=== PATIENT | female | born 1940 | race Caucasian/White ===

== ENCOUNTER 2017-01-29 17:48 | Inpatient (IN) | payer MEDICARE, BC ==
--- NOTE | ~2017-01-29 | EGD ---
EGD REPORT [facility] [address] [address] NAME: PEGGY CALDERON : [birth year] STATUS : ADM IN PAT#: [id number] AGE: 76 ADM/REG DATE : 01/29/17 MR#: [id number] REPORT SERV DATE: 01/31/17 DICTATED BY: AURELIO PADILLA DATE: 01/31/17 REPORT STATUS : Draft TRANSCRIBED BY: [employer] DATE: 01/31/17 [facility] Patient Name: Peggy Calderon Date of : 1940 Attending MD: AURELIO PADILLA, Procedure Date No Time: 01/31/2017 Procedure: Upper GI endoscopy Indications: Hematochezia Referring MD: BABATUNDE RICHARDS MD Medicines: Monitored Anesthesia Care Complications: No immediate complications. Estimated blood loss: None. Procedure: Pre-Anesthesia Assessment: - ASA Grade Assessment: III - A patient with severe systemic disease. After obtaining informed consent, the endoscope was passed under direct vision. Throughout the procedure, the patient's blood pressure, pulse, and oxygen saturations were monitored continuously. The GIF H190 [id number] was introduced through the mouth, and advanced to the second part of duodenum. The upper GI endoscopy was accomplished without difficulty. The patient tolerated the procedure well. Findings: The esophagus was normal. A single medium-sized papule (nodule) with no bleeding and no stigmata of recent bleeding was found on the anterior wall of the gastric body. Biopsies were taken with a cold forceps for histology. Verification of patient identification for the specimen was done. Estimated blood loss was minimal. One small papule (nodule) with no bleeding and no stigmata of recent bleeding was found on the posterior wall of the gastric body. A single 11 mm sessile polyp with no bleeding and no stigmata of recent bleeding was found in the gastric antrum. Biopsies were taken with a cold forceps for histology. Verification of patient identification for the specimen was done. Estimated blood loss was minimal. The cardia and gastric fundus were normal on retroflexion. The examined duodenum was normal. Impression: - Normal esophagus. - A single medium-sized papule (nodule) with no bleeding and no stigmata of recent bleeding was found in the stomach. Biopsied. - One small papule (nodule) with no bleeding and no stigmata of recent bleeding was found in the stomach. EGD REPORT [place] [id number] [facility] [place]. [address] NAME: PEGGY CALDERON : [birth year] STATUS : ADM IN [facility]#: [id number] AGE: 76 ADM/REG DATE : 01/29/17 MR#: [id number] REPORT SERV DATE: 01/31/17 DICTATED BY: AURELIO PADILLA DATE: 01/31/17 REPORT STATUS : Draft TRANSCRIBED BY: [facility] DATE: 01/31/17 - A single gastric polyp. Biopsied. - Normal examined duodenum. Recommendation: - Return to previous diet. - Continue present medications. - Await pathology results. - Perform an endoscopic ultrasound (EUS) as outpatient for gastric nodules. Procedure Code(s): --- Professional --- 45957, Esophagogastroduodenoscopy, flexible, transoral; with biopsy, single or multiple Diagnosis Code(s): --- Professional --- K31.9, Disease of stomach and duodenum, unspecified K31.7, Polyp of stomach and duodenum K92.1, Melena CPT copyright 2013 [employer]. All rights reserved. The codes documented in this report are preliminary and upon gold leaf printer review may be revised to meet current compliance requirements. AURELIO PADILLA, 01/31/2017 11:20 AM Number of Addenda: 0 Note Initiated On: 01/31/2017 10:31 AM Scope Withdrawal Time 0 hours 0 minutes 0 seconds
--- NOTE | ~2017-01-29 | CN ---
Consultation Report [facility] [address] [place]. [address] NAME: STACIA CALDERON : [birth year] STATUS : ADM IN PAT#: [id number] AGE: 76 ADM/REG DATE : 01/29/17 MR#: [id number] REPORT SERV DATE: 01/30/17 DICTATED BY: GAGANDEEP HUIZAR DATE: 01/30/17 REPORT STATUS : Draft TRANSCRIBED BY: [employer] DATE: 01/30/17 DATE OF CONSULTATION: 01/30/2017 REASON FOR CONSULTATION: Hematochezia and posthemorrhagic anemia. HISTORY OF PRESENT ILLNESS: Ms. Calderon is a 76-year-old woman with chronic atrial fibrillation, who is on Xarelto. She reports yesterday she had approximately six bowel movements of pure bright red blood, described as moderate in amount, currently is improving and as a result, she has had no further bleeding since being admitted to the hospital. She has a baseline hemoglobin of approximately 11 and currently, it has dropped to 10.2. She denies any abdominal pain. She denies any excessive NSAID usage. Her last colonoscopy was in 2011, where apparently she presented with some iron deficiency anemia and did undergo some capsule endoscopy. She was thought to have apparently small-bowel AVMs, but she had no overt GI bleeding in the past. PAST MEDICAL HISTORY: Includes a history of uterine cancer, atrial fibrillation, hypertension, diabetes, obesity, sleep apnea. HOME MEDICATIONS: Included alendronate, amiodarone, diltiazem, iron, levothyroxine, pantoprazole, rivaroxaban. ALLERGIES: SHE IS ALLERGIC TO ALLOPURINOL, PROBENECID, AMOXICILLIN, FEBUXOSTAT. SOCIAL HISTORY: She does not smoke or drink. FAMILY HISTORY: She has a daughter who had anal cancer, but there is no other family history of GI malignancy. REVIEW OF SYSTEMS: A 14-point review of systems was reviewed and was otherwise negative unless mentioned in the HPI. PHYSICAL EXAMINATION: VITAL SIGNS: Revealed a temperature of 97.0, blood pressure 140/66, heart rate is 75, respiratory rate 20. GENERAL: The patient was noted to be obese, but she was lying in bed, in no apparent distress. HEENT: Her head is atraumatic and normocephalic. PSYCHIATRIC: She is alert and oriented x3 and had a proper affect and mood. NECK: Revealed no crepitus or thyromegaly. CARDIOVASCULAR: Revealed regular rate and rhythm. LUNGS: Clear to auscultation bilaterally. ABDOMEN: Nontender and nondistended. There is no guarding or rebound. EXTREMITIES: Revealed trace pitting edema bilaterally in the lower pretibial areas, but there was no clubbing or cyanosis. Consultation Report [place] [id number] [place]. [address] NAME: STACIA CALDERON : [birth year] STATUS : ADM IN PAT#: [id number] AGE: 76 ADM/REG DATE : 01/29/17 MR#: [id number] REPORT SERV DATE: 01/30/17 DICTATED BY: GAGANDEEP HUIZAR DATE: 01/30/17 REPORT STATUS : Draft TRANSCRIBED BY: HAWK DATE: 01/30/17 SKIN: Revealed no gross skin lesions or palpable nodules. NEUROLOGIC: She had no asterixis or tremor. LABORATORY DATA: Laboratory evaluation was notable for initial hemoglobin of 11.3, this has decreased to 10.2. Otherwise, her labs were essentially unremarkable. IMPRESSION: 1. Hematochezia. 2. Posthemorrhagic anemia. PLAN: At this point, we will plan a colonoscopy for the following day. The risks of this procedure including the risks of bleeding, infection, perforation, adverse reaction to sedatives, missed lesion, and missed diagnosis were explained to the patient in detail. She was notified that any complication could require surgery and could be life threatening and she is agreeable. Thank you for allowing me to evaluate the patient. Please do not hesitate to contact me should you have any further concerns or questions. GO/MODL Gagandeep Huizar MD / [id number] CC: Galindo Castle M.D. Darius Valencia M.D. Alexander Stratienko, M.D.
--- NOTE | ~2017-01-29 | HP ---
History And Physical [place] [id number] [place]. [address] NAME: STACIA CALDERON : [birth year] STATUS : ADM IN [facility]#: [id number] AGE: 76 ADM/REG DATE : 01/29/17 MR#: [id number] REPORT SERV DATE: 01/30/17 DICTATED BY: ENE BETH DATE: 01/29/17 REPORT STATUS : Draft TRANSCRIBED BY: MODL DATE: 01/29/17 DATE OF ADMISSION: 01/29/2017 IDENTIFYING DATA: A 76-year-old white female, whose PCP is Dr. Galindo Morfin; GI doctor, Dr. Griffith; cardiology doctor, Dr. Royal; and rheumatology doctor, Dr. Howe. CHIEF COMPLAINT: GI bleeding. HISTORY OF PRESENT ILLNESS: This history of present illness is obtained by talking with the patient as well as with her daughter at the bedside. I also spoke with the ER physician, I reviewed the ER chart, and I looked through [employer] and [employer]. The patient states she was in her usual state of health until noon today. She went to the bathroom, she had some dark-colored stool because she takes iron, but then she noticed there was bright red blood, and she had several large amounts but no clots. She came to the emergency room where she passed 2 more large amounts of bright red blood per rectum. 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 She states that her EGD and colonoscopy did not reveal the abnormality. There is a history of colon polyps, sigmoid diverticula, and hemorrhoids. She also reportedly had a pelvic abscess after a colon polypectomy in the past. She states she has not taken any over-the- counter anti-inflammatories. She is, however, on her Xarelto, and she took her dose last night, none of it today. REVIEW OF SYSTEMS: She has chronic leg edema, left more than right, since they did a lymph node removal as part of a hysterectomy for uterine cancer years ago. She has some chronic stasis rash on her calves. She denies hematuria, fever, cough, nasal congestion, sore throat, chest pain, shortness of breath diarrhea, abdominal pain, nausea, vomiting, dysuria, urinary hesitancy, tick bites, headaches, or falls. ALLERGIES: SHE CLAIMS ALLERGIES TO ALLOPURINOL, PROBENECID, AMOXICILLIN, AND ULORIC. PAST MEDICAL HISTORY: She denies any history of asthma, COPD, stroke, myocardial infarction, peptic ulcer, liver disease, and renal disease. She has known atrial fibrillation. She has had ablation in 2012 and cardioversion last week on 02/17/2017, 03/16/2016, and 10/15/2014. She has a pacer for sick sinus syndrome, 10/05/2013, by Dr. Ashkan Kauffman. She has a history of hypertension. She has had more than 15 years worth of diabetes. Her last A1c was 5% on 11/13/2016. She has some peripheral neuropathy. She has obesity, obstructive sleep apnea as well, but she is intolerant of CPAP, so she wears oxygen 2 L at bedtime. She has had prior gout. She has had a history of stroke in the past. She had a CT scan done back in 10/2008 that showed small-vessel ischemic changes in the left frontal white matter. HOME MEDICATION: Fosamax 70 mg every Tuesday, amiodarone 200 mg daily, Combigan ophthalmic one drop each eye twice a day, Calcitrene ointment twice a day to under her skin folds in History And Physical [address] [address] NAME: STACIA CALDERON : [birth year] STATUS : ADM IN [facility]#: [id number] AGE: 76 ADM/REG DATE : 01/29/17 MR#: [id number] REPORT SERV DATE: 01/30/17 DICTATED BY: ENE BETH DATE: 01/29/17 REPORT STATUS : Draft TRANSCRIBED BY: HAWK DATE: 01/29/17 her groin, Cardizem CD 240 mg daily, ferrous sulfate 325 mg at bedtime, Synthroid 100 mcg before breakfast daily and her TSH was 4.69 on 11/23/2016 which is slightly elevated, Percocet 5/325 t.i.d. p.r.n. pain, Protonix 40 mg b.i.d., MiraLAX one packet daily, Xarelto 20 mg every bedtime, and [place] nasal spray p.r.n. PAST SURGICAL HISTORY: She has had pelvic abscess drainage, hysterectomy with lymph node dissection, right total knee, and she thinks she has had an appendectomy, she is not certain. SOCIAL HISTORY: No alcohol intake history. She quit smoking cigarettes in 1980, she used to smoke about a pack to a pack and a half per day. She was an commanding officer garage. She uses a walker. She lives alone. She denies any recent falls. FAMILY HISTORY: Mother had diabetes and throat cancer. Dad had a heart attack. Brother is age 84 with COPD. DIAGNOSTIC DATA: White count is 7.7; hemoglobin of 11.3, and by comparison, it was 11.6 on 01/18/2017; platelets 158,000; ProTime is 20.4; INR 1.8; and PTT 41.5. Sodium 141, potassium 4.5, chloride 103, CO2 is 33, BUN 19, creatinine 1.17, glucose 140, and calcium 9.6. The rest of the CMP normal. PHYSICAL EXAMINATION: VITAL SIGNS: Temp 98, pulse 70, respirations 16, blood pressure 152/70, and O2 saturation is 97% on room air. GENERAL: A well-developed female, who at this time appears in no acute distress. Head is atraumatic. Pupils are equal, round, and reactive to light. Extraocular motions are intact. No scleral icterus noted. Ear canals and TMs unremarkable with no inflammatory changes noted externally. Nose, noninflamed externally. Septum midline. Nares patent. Mouth, moist. Good gag. No redness of the throat, gums, or lips. Good dental repair is noted. NECK: Supple. No lymph node or thyroid enlargement. The carotids have good pulses. No bruits. LUNGS: Clear. Good air flow, anterior and posteriorly. No wheezes. No rhonchi. Normal respiratory effort. HEART: Regular rate and rhythm with a grade 1 systolic ejection murmur heard best at the right second intercostal space. No gallop or lift noted. ABDOMEN: Very obese. Bowel sounds positive. Soft, nondistended, and nontender. No masses. No organomegaly. EXTREMITIES: No clubbing. No cyanosis. She has 2+ edema, left calf and ankle and 1+ edema, right calf and ankle. She has some chronic venous stasis discoloration in her calves. No other actively inflamed skin or joints. NEUROLOGIC: Alert, oriented, and cooperative with grossly normal mentation and speech and motor and cranial nerves 2-12 assessed. ASSESSMENT: 1. Bright red blood per rectum in large quantity but no clots consistent with a GI bleed in a patient who had a previous AV malformation found on capsule endoscopy in the past. 2. Paroxysmal atrial fibrillation with previous ablation, multiple cardioversions, sick History And Physical [address] [place]. [address] NAME: STACIA CALDERON : [birth year] STATUS : ADM IN PAT#: [id number] AGE: 76 ADM/REG DATE : 01/29/17 MR#: [id number] REPORT SERV DATE: 01/30/17 DICTATED BY: ENE BETH DATE: 01/29/17 REPORT STATUS : Draft TRANSCRIBED BY: HAWK DATE: 01/29/17 sinus syndrome, and pacemaker. 3. Active anticoagulation with Xarelto, last dose taken yesterday. 4. History of hypertension. 5. Diabetes mellitus type 2, on dietary control. 6. Morbid obesity. 7. Obstructive sleep apnea intolerant of CPAP, so wearing nocturnal oxygen. 8. History of gout. 9. History of colon polyps and diverticulitis. 10.History of uterine cancer resected. 11.Hypothyroidism. PLAN: 1. The patient is being admitted to a telemetry unit. I have talked with the patient and her daughter about the advice to discontinue her Xarelto at this point in time and monitor her GI bleeding with the intent that once GI feels safe we can restart her Xarelto. 2. Follow up her hemoglobin. 3. Type and screen 2 units of packed cells. 4. Consult her GI Team. 5. Check her TSH. 6. Check her urinalysis for signs of bleeding. JYOTSNAG/HAWK Ene Beth M.D. / [id number] CC: Galindo Castle M.D. Darius Valencia M.D. William Craig, D.O. Alexander Stratienko, M.D.
--- NOTE | ~2017-01-29 | EGD ---
EGD REPORT [facility] [address] [address] NAME: PEGGY CALDERON : 38 STATUS : ADM IN PAT#: [id number] AGE: 76 ADM/REG DATE : 01/29/17 MR#: [id number] REPORT SERV DATE: 01/31/17 DICTATED BY: AURELIO PADILLA DATE: 01/31/17 REPORT STATUS : Draft TRANSCRIBED BY: [employer] DATE: 01/31/17 Endoscopy Center Patient Name: Peggy Calderon Date of : 1940 Attending MD: AURELIO PADILLA, Procedure Date No Time: 01/31/2017 Procedure: Colonoscopy Indications: Hematochezia Referring MD: BABATUNDE RICHARDS MD Medicines: Monitored Anesthesia Care Complications: No immediate complications. Estimated blood loss: None. Procedure: Pre-Anesthesia Assessment: - ASA Grade Assessment: III - A patient with severe systemic disease. After I obtained informed consent, the scope was passed under direct vision. Throughout the procedure, the patient's blood pressure, pulse, and oxygen saturations were monitored continuously. The PCF [id number] was introduced through the anus and advanced to the cecum, identified by appendiceal orifice and ileocecal valve. The colonoscopy was performed without difficulty. The patient tolerated the procedure well. The quality of the bowel preparation was adequate. Findings: The perianal and digital rectal examinations were normal. Three medium-sized angioectasias without bleeding were found in the ascending colon. Coagulation for hemostasis using argon plasma at 1 liter/minute and 25 sauer was successful. Multiple small-mouthed diverticula were found in the sigmoid colon, in the descending colon and in the distal transverse colon. Internal hemorrhoids were found during retroflexion and were Grade II (internal hemorrhoids that prolapse but reduce spontaneously). Two sessile polyps were found in the descending colon. The polyps were 4 to 5 mm in size. These polyps were removed with a cold snare. Resection and retrieval were complete. Verification of patient identification for the specimen was done. Estimated blood loss was minimal. A sessile polyp was found in the sigmoid colon. The polyp was 5 mm in size. The polyp was removed with a cold snare. Resection and retrieval were complete. Verification of patient identification for the specimen was done. Estimated blood loss was minimal. The exam was otherwise without abnormality on direct and retroflexion views. Impression: - Three non-bleeding colonic angioectasias. Treated with EGD REPORT [address] [address] NAME: PEGGY CALDERON : [birth year] STATUS : ADM IN [facility]#: [id number] AGE: 76 ADM/REG DATE : 01/29/17 MR#: [id number] REPORT SERV DATE: 01/31/17 DICTATED BY: AURELIO PADILLA DATE: 01/31/17 REPORT STATUS : Draft TRANSCRIBED BY: [facility] DATE: 01/31/17 thermal therapy. - Diverticulosis in the sigmoid colon, in the descending colon and in the distal transverse colon. - Internal hemorrhoids. - Two 4 to 5 mm polyps in the descending colon. Resected and retrieved. - One 5 mm polyp in the sigmoid colon. Resected and retrieved. - The examination was otherwise normal on direct and retroflexion views. Recommendation: - Patient has a contact number available for emergencies. The signs and symptoms of potential delayed complications were discussed with the patient. Return to normal activities tomorrow. Written discharge instructions were provided to the patient. - Return to previous diet. - Continue present medications. - Await pathology results. - Ok to restart anticoagulation. Procedure Code(s): --- Professional --- 56436, 59, Colonoscopy, flexible, proximal to splenic flexure; with control of bleeding (eg, injection, bipolar cautery, unipolar cautery, laser, heater probe, stapler, plasma shiatsu therapist) 61995, Colonoscopy, flexible, proximal to splenic flexure; with removal of tumor(s), polyp(s), or other lesion(s) by snare technique Diagnosis Code(s): --- Professional --- K55.20, Angiodysplasia of colon without hemorrhage K64.1, Second degree hemorrhoids K57.30, Diverticulosis of large intestine without perforation or abscess without bleeding D12.5, Benign neoplasm of sigmoid colon D12.4, Benign neoplasm of descending colon K92.1, Melena CPT copyright 2013 [employer]. All rights reserved. The codes documented in this report are preliminary and upon postdoctoral scientist review may be revised to meet current compliance requirements. ANDREE HIRSCH REPORT [facility] [address] [address] NAME: PEGGY CALDERON : [birth year] STATUS : ADM IN [facility]#: [id number] AGE: 76 ADM/REG DATE : 01/29/17 MR#: [id number] REPORT SERV DATE: 01/31/17 DICTATED BY: AURELIO PADILLA DATE: 01/31/17 REPORT STATUS : Draft TRANSCRIBED BY: [employer] DATE: 01/31/17 01/31/2017 11:24 AM Number of Addenda: 0 Note Initiated On: 01/31/2017 9:38 AM Scope Withdrawal Time 0 hours 20 minutes 54 seconds [address] [address]
--- NOTE | ~2017-01-29 | DS ---
Discharge Summary [facility] [address] [place]. [address] NAME: STACIA CALDERON : 38 STATUS : DIS IN PAT#: [id number] AGE: 76 ADM/REG DATE : 01/29/17 MR#: [id number] REPORT SERV DATE: 02/05/17 DICTATED BY: MARIN OMALLEY DATE: 02/04/17 REPORT STATUS : Draft TRANSCRIBED BY: MODL DATE: 02/04/17 ADMISSION DATE: 01/29/2017 DISCHARGE DATE: 02/04/2017 PRINCIPAL DIAGNOSES: Lower gastrointestinal bleed with acute blood loss anemia due to arteriovenous malformations plus the presence of Xarelto. SECONDARY DIAGNOSES: Atrial fibrillation, type 2 diabetes, hypertension, sleep apnea, obesity. HISTORY OF PRESENT ILLNESS: Please see Dr. Beth's dictation on 01/29/2017. HOSPITAL COURSE: Admitted with a GI bleed with acute blood loss anemia. The patient had a colonoscopy, found to have AVMs, placed back on Xarelto after her electrocautery; however, she began bleeding again and required further blood and iron infusions. Xarelto was discontinued. We conferred with her manager hi, was felt to be taken off Xarelto permanently and start up on Eliquis but wait another seven days prior to doing so due to the increased risk of bleeding with Xarelto versus Eliquis. She will follow up with Dr. Galindo Morfin in one to two weeks and with Dr. Royal in two to four weeks. KENIA/HAKW Marin Omalley M.D. / [id number] CC: Darius Espinosa M.D.
[2017-01-29 17:11] LABS: BASOPHILS 0.4 %; BASOPHILS ABSOLUTE 0.03 10/3/uL (0.0-0.16); EOSINOPHILS 1.6 %; EOSINOPHILS ABSOLUTE 0.12 10/3/uL (0.0-0.53); HEMATOCRIT 35.8 % (36.0-48.0); HEMOGLOBIN 11.3 g/dL (12.0-16.0); IMMATURE GRANULOCYTES 0.3 %; IMMATURE GRANULOCYTES ABSOLUTE 0.02 10/3/uL (0.0-0.11); LYMPHOCYTES 9.5 %; LYMPHOCYTES ABSOLUTE 0.73 10/3/uL (0.67-4.30); MANUAL DIFF NO %; MEAN CORPUS HGB CONC 31.6 g/dL (32.0-36.0); MEAN CORPUSCULAR HEMOGLOB 30.3 pg (26.0-34.0); MEAN PLATELET VOLUME 10.4 fL (9.2-13.0); MONOCYTES 5.4 %; MONOCYTES ABSOLUTE 0.42 10/3/uL (0.21-1.20); NEUTROPHILS 82.8 %; NEUTROPHILS ABSOLUTE 6.39 10/3/uL (2.02-8.40); PLATELET COUNT 158 10/3/uL (150-400); RBC DISTRIBUTION WIDTH 13.5 % (12.0-16.0); RED CELL COUNT 3.73 10/6/uL (4.0-5.6); WHITE BLOOD CELLS 7.7 10/3/uL (4.5-10.5)
[2017-01-29 17:18] LABS: INTERNATIONAL NORMAL RATI 1.8 UNITS (-); PROTIME (NOT ORD) 20.4 SEC (12.0-14.5)
[2017-01-29 17:19] LABS: PARTIAL THROMBO TIME 41.5 SEC (22.5-37.2)
[2017-01-29 17:25] LABS: ALBUMIN 4.3 G/DL (3.5-5.0); ALKALINE PHOSPHATASE 58 U/L (45-117); BUN (BLOOD UREA NITROGEN) 19 MG/DL (6-23); CALCIUM, SERUM 9.6 MG/DL (8.5-10.4); CHLORIDE, SERUM 103 MMOL/L (96-112); CREATININE 1.17 MG/DL (0.55-1.02); GFR AFRICAN AMERICAN 52 ML/MIN (>=60); GFR NON AFRICAN AMERICAN 45 ML/MIN (>=60); GLUCOSE, SERUM 140 MG/DL (60-99); POTASSIUM, SERUM 4.5 MMOL/L (3.5-5.3); SGPT(ALT) 18 U/L (5-65); SODIUM, SERUM 141 MMOL/L (135-148); TOTAL BILIRUBIN 0.4 MG/DL (0-1.2); TOTAL PROTEIN 7.9 G/DL (6.0-8.5)
[2017-01-29 17:26] LABS: A/G RATIO 1.2 (0.7-1.9); CO2 (CARBON DIOXIDE) 33 MMOL/L (24-34); GLOBULIN 3.6 G/DL (2.5-4.1); SGOT(AST) 14 U/L (5-40)
[~2017-01-29 17:48] MED LIST: ACET500CAP PO; ATEN25 PO; ATEN50 PO; BENEMID500 PO; BENICAR HCT1 TA2 PO; BETAP120 PO; BETAPACE80 PO; CALTRA600D PO; CARDCD240 PO; CARTIA XT240 MG/24 PO; CIP5 PO; COLCH6 PO; COMBIGAN0.2 MG/0.5 OP; COMBIGAN0.2 MG/0.5 OPH; CORDARONE PO; DIABETA5 PO; EZFE 200200 MG PO; FERROUS SULF325 M1 PO; FESO4 PO; FOSAMAX70 MG PO; GLUCOTROL5 PO; HCTZ25B PO; HYDROCHLOROT12.5 MG PO; IRON325 MG PO; KLOR-CON M2020 MEQ PO; L20 PO; L40 PO; LEVOTHYROXIN100 MCG PO; MULTIPLE VIT PO; NORCO1 TA1 PO; P10 PO; P5 PO; PACERONE100 MG PO; PCET PO; PRADAXA150 MG PO; PROTONIX PO; ULORIC PO; XARELTO20 MG PO
[2017-01-29] MEDS ORDERED: PACERONE200 MG PO (18:09)
[2017-01-29] MEDS ORDERED: SYN1 PO (18:10)
[2017-01-29] MEDS ORDERED: XARELTO20 MG PO (18:10)
[2017-01-29] MEDS ORDERED: CARDCD240 PO (18:10)
[2017-01-29] MEDS ORDERED: PROTONIX PO (18:11)
[2017-01-29] MEDS ORDERED: PCET PO (18:11)
[2017-01-29] MEDS ORDERED: COMBIGAN0.2 MG/0.5 OPH (18:12)
[2017-01-29] MEDS ORDERED: FOSAMAX70 MG PO (18:12)
[2017-01-29] MEDS ORDERED: MIRALAX POWDER1 PKT PO (18:12)
[2017-01-29] MEDS ORDERED: FERROUS SULF325 M1 PO (18:12)
[2017-01-29] MEDS ORDERED: OCEAN NAS (18:13)
[2017-01-29] MEDS ORDERED: CALCITRENE60 GM TOP (18:13)
[2017-01-29 18:46] LABS: ASCORBIC ACID (UR NOT ORDER) NEG (NEG); BILIRUBIN, URINE NEGATIVE (NEG); ER URINALYSIS TAT 0 Hrs 11 Mins; KETONE, URINE NEGATIVE (NEG); LEUKOCYTE ESTERASE(NOT OR NEG (NEG); NITRITE (URINE) NEG (NEG); WBC (NOT ORDERED) (RFLEX) < 1 (0-5)
[2017-01-29 23:10] LABS: HEMOGLOBIN 9.8 g/dL (12.0-16.0)
[2017-01-29 23:11] LABS: HEMATOCRIT 31.2 % (36.0-48.0)
[2017-01-30 06:33] LABS: HEMATOCRIT 31.8 % (36.0-48.0); HEMOGLOBIN 10.2 g/dL (12.0-16.0)
[2017-01-30 06:35] LABS: BASOPHILS 0.4 %; BASOPHILS ABSOLUTE 0.02 10/3/uL (0.0-0.16); EOSINOPHILS 2.9 %; EOSINOPHILS ABSOLUTE 0.16 10/3/uL (0.0-0.53); HEMOGLOBIN 10.2 g/dL (12.0-16.0); IMMATURE GRANULOCYTES 0.2 %; IMMATURE GRANULOCYTES ABSOLUTE 0.01 10/3/uL (0.0-0.11); LYMPHOCYTES ABSOLUTE 0.73 10/3/uL (0.67-4.30); MEAN CORPUS HGB CONC 31.9 g/dL (32.0-36.0); MEAN CORPUSCULAR HEMOGLOB 30.4 pg (26.0-34.0); MEAN CORPUSCULAR VOLUME 95.5 fL (80-100); MEAN PLATELET VOLUME 9.8 fL (9.2-13.0); MONOCYTES 6.4 %; MONOCYTES ABSOLUTE 0.36 10/3/uL (0.21-1.20); NEUTROPHILS 77.1 %; NEUTROPHILS ABSOLUTE 4.33 10/3/uL (2.02-8.40); PLATELET COUNT 143 10/3/uL (150-400); RBC DISTRIBUTION WIDTH 13.6 % (12.0-16.0); RED CELL COUNT 3.35 10/6/uL (4.0-5.6); WHITE BLOOD CELLS 5.6 10/3/uL (4.5-10.5)
[2017-01-30 06:37] LABS: MANUAL DIFF NO %
[2017-01-30 06:47] LABS: BUN (BLOOD UREA NITROGEN) 15 MG/DL (6-23); CHLORIDE, SERUM 104 MMOL/L (96-112); CO2 (CARBON DIOXIDE) 30 MMOL/L (24-34); CREATININE 1.03 MG/DL (0.55-1.02); GFR AFRICAN AMERICAN 61 ML/MIN (>=60); GFR NON AFRICAN AMERICAN 52 ML/MIN (>=60); GLUCOSE, SERUM 130 MG/DL (60-99); SODIUM, SERUM 141 MMOL/L (135-148)
[2017-01-30 10:17] LABS: HEMATOCRIT 31.9 % (36.0-48.0); HEMOGLOBIN 10.2 g/dL (12.0-16.0)
[2017-01-30 10:50] LABS: FERRITIN 21 NG/ML (8-252)
[2017-01-30 15:50] LABS: HEMATOCRIT 35.1 % (36.0-48.0)
[2017-01-30 21:31] LABS: HEMATOCRIT 34.5 % (36.0-48.0)
[2017-01-31 06:04] LABS: HEMOGLOBIN 9.8 g/dL (12.0-16.0)
[2017-01-31 06:06] LABS: BASOPHILS 0.2 %; BASOPHILS ABSOLUTE 0.01 10/3/uL (0.0-0.16); EOSINOPHILS 3.1 %; EOSINOPHILS ABSOLUTE 0.14 10/3/uL (0.0-0.53); HEMATOCRIT 31.1 % (36.0-48.0); IMMATURE GRANULOCYTES 0.4 %; IMMATURE GRANULOCYTES ABSOLUTE 0.02 10/3/uL (0.0-0.11); LYMPHOCYTES 20.1 %; LYMPHOCYTES ABSOLUTE 0.92 10/3/uL (0.67-4.30); MEAN CORPUS HGB CONC 32.2 g/dL (32.0-36.0); MEAN CORPUSCULAR HEMOGLOB 30.9 pg (26.0-34.0); MEAN PLATELET VOLUME 9.4 fL (9.2-13.0); MONOCYTES 7.4 %; MONOCYTES ABSOLUTE 0.34 10/3/uL (0.21-1.20); NEUTROPHILS 68.8 %; NEUTROPHILS ABSOLUTE 3.14 10/3/uL (2.02-8.40); PLATELET COUNT 131 10/3/uL (150-400); RBC DISTRIBUTION WIDTH 13.3 % (12.0-16.0); RED CELL COUNT 3.24 10/6/uL (4.0-5.6); WHITE BLOOD CELLS 4.6 10/3/uL (4.5-10.5)
[2017-01-31 06:07] LABS: HEMATOCRIT 29.8 % (36.0-48.0)
[2017-01-31 06:10] LABS: MANUAL DIFF NO %
[2017-01-31 06:32] LABS: BUN (BLOOD UREA NITROGEN) 12 MG/DL (6-23); CHLORIDE, SERUM 105 MMOL/L (96-112); CO2 (CARBON DIOXIDE) 33 MMOL/L (24-34); CREATININE 0.85 MG/DL (0.55-1.02); GFR AFRICAN AMERICAN 77 ML/MIN (>=60); GFR NON AFRICAN AMERICAN 66 ML/MIN (>=60); GLUCOSE, SERUM 111 MG/DL (60-99); POTASSIUM, SERUM 3.5 MMOL/L (3.5-5.3); SODIUM, SERUM 144 MMOL/L (135-148)
[2017-02-01 06:50] LABS: BASOPHILS 0.2 %; BASOPHILS ABSOLUTE 0.01 10/3/uL (0.0-0.16); EOSINOPHILS 2.5 %; EOSINOPHILS ABSOLUTE 0.14 10/3/uL (0.0-0.53); HEMATOCRIT 30.2 % (36.0-48.0); HEMOGLOBIN 9.5 g/dL (12.0-16.0); IMMATURE GRANULOCYTES 0.4 %; IMMATURE GRANULOCYTES ABSOLUTE 0.02 10/3/uL (0.0-0.11); LYMPHOCYTES 10.4 %; LYMPHOCYTES ABSOLUTE 0.59 10/3/uL (0.67-4.30); MEAN CORPUS HGB CONC 31.5 g/dL (32.0-36.0); MEAN CORPUSCULAR HEMOGLOB 30.6 pg (26.0-34.0); MEAN CORPUSCULAR VOLUME 97.4 fL (80-100); MEAN PLATELET VOLUME 9.4 fL (9.2-13.0); MONOCYTES 9.6 %; MONOCYTES ABSOLUTE 0.54 10/3/uL (0.21-1.20); NEUTROPHILS 76.9 %; NEUTROPHILS ABSOLUTE 4.35 10/3/uL (2.02-8.40); PLATELET COUNT 121 10/3/uL (150-400); RBC DISTRIBUTION WIDTH 13.9 % (12.0-16.0); WHITE BLOOD CELLS 5.7 10/3/uL (4.5-10.5)
[2017-02-01 06:56] LABS: MANUAL DIFF NO %
[2017-02-01 07:02] LABS: BUN (BLOOD UREA NITROGEN) 13 MG/DL (6-23); CALCIUM, SERUM 8.6 MG/DL (8.5-10.4); CHLORIDE, SERUM 106 MMOL/L (96-112); CO2 (CARBON DIOXIDE) 32 MMOL/L (24-34); CREATININE 1.02 MG/DL (0.55-1.02); GFR AFRICAN AMERICAN 61 ML/MIN (>=60); GFR NON AFRICAN AMERICAN 53 ML/MIN (>=60); GLUCOSE, SERUM 131 MG/DL (60-99); POTASSIUM, SERUM 3.9 MMOL/L (3.5-5.3); SODIUM, SERUM 141 MMOL/L (135-148)
[2017-02-01 16:37] LABS: HEMATOCRIT 31.3 % (36.0-48.0); HEMOGLOBIN 9.9 g/dL (12.0-16.0)
[2017-02-02 06:23] LABS: BASOPHILS 0.2 %; BASOPHILS ABSOLUTE 0.01 10/3/uL (0.0-0.16); EOSINOPHILS 3.1 %; EOSINOPHILS ABSOLUTE 0.13 10/3/uL (0.0-0.53); HEMATOCRIT 28.4 % (36.0-48.0); HEMOGLOBIN 8.7 g/dL (12.0-16.0); IMMATURE GRANULOCYTES 0.7 %; IMMATURE GRANULOCYTES ABSOLUTE 0.03 10/3/uL (0.0-0.11); LYMPHOCYTES 16.5 %; LYMPHOCYTES ABSOLUTE 0.69 10/3/uL (0.67-4.30); MANUAL DIFF NO %; MEAN CORPUS HGB CONC 30.6 g/dL (32.0-36.0); MEAN CORPUSCULAR VOLUME 97.9 fL (80-100); MEAN PLATELET VOLUME 9.7 fL (9.2-13.0); MONOCYTES 6.7 %; MONOCYTES ABSOLUTE 0.28 10/3/uL (0.21-1.20); NEUTROPHILS 72.8 %; NEUTROPHILS ABSOLUTE 3.05 10/3/uL (2.02-8.40); PLATELET COUNT 116 10/3/uL (150-400); RBC DISTRIBUTION WIDTH 13.7 % (12.0-16.0); WHITE BLOOD CELLS 4.2 10/3/uL (4.5-10.5)
[2017-02-02 06:34] LABS: BUN (BLOOD UREA NITROGEN) 10 MG/DL (6-23); CALCIUM, SERUM 8.6 MG/DL (8.5-10.4); CHLORIDE, SERUM 106 MMOL/L (96-112); CO2 (CARBON DIOXIDE) 28 MMOL/L (24-34); CREATININE 0.99 MG/DL (0.55-1.02); GFR AFRICAN AMERICAN 64 ML/MIN (>=60); GFR NON AFRICAN AMERICAN 55 ML/MIN (>=60); GLUCOSE, SERUM 124 MG/DL (60-99); POTASSIUM, SERUM 4.1 MMOL/L (3.5-5.3); SODIUM, SERUM 141 MMOL/L (135-148)
[2017-02-02 16:55] LABS: HEMATOCRIT 27.4 % (36.0-48.0); HEMOGLOBIN 8.7 g/dL (12.0-16.0)
[2017-02-02 23:04] LABS: HEMOGLOBIN 9.6 g/dL (12.0-16.0)
[2017-02-02 23:10] LABS: HEMATOCRIT 30.6 % (36.0-48.0)
[2017-02-03 04:39] LABS: BASOPHILS 0.4 %; BASOPHILS ABSOLUTE 0.02 10/3/uL (0.0-0.16); EOSINOPHILS 2.6 %; EOSINOPHILS ABSOLUTE 0.13 10/3/uL (0.0-0.53); HEMOGLOBIN 8.5 g/dL (12.0-16.0); IMMATURE GRANULOCYTES 0.8 %; IMMATURE GRANULOCYTES ABSOLUTE 0.04 10/3/uL (0.0-0.11); LYMPHOCYTES 13.9 %; MEAN CORPUSCULAR HEMOGLOB 31.3 pg (26.0-34.0); MEAN CORPUSCULAR VOLUME 97.1 fL (80-100); MEAN PLATELET VOLUME 9.8 fL (9.2-13.0); MONOCYTES 7.7 %; MONOCYTES ABSOLUTE 0.39 10/3/uL (0.21-1.20); NEUTROPHILS 74.6 %; NEUTROPHILS ABSOLUTE 3.76 10/3/uL (2.02-8.40); PLATELET COUNT 119 10/3/uL (150-400); RBC DISTRIBUTION WIDTH 14.1 % (12.0-16.0); RED CELL COUNT 2.72 10/6/uL (4.0-5.6)
[2017-02-03 04:40] LABS: HEMATOCRIT 26.4 % (36.0-48.0); MANUAL DIFF NO %; MEAN CORPUS HGB CONC 32.2 g/dL (32.0-36.0)
[2017-02-03 04:48] LABS: BUN (BLOOD UREA NITROGEN) 10 MG/DL (6-23); CALCIUM, SERUM 8.6 MG/DL (8.5-10.4); CHLORIDE, SERUM 107 MMOL/L (96-112); CO2 (CARBON DIOXIDE) 28 MMOL/L (24-34); CREATININE 0.96 MG/DL (0.55-1.02); GFR AFRICAN AMERICAN 66 ML/MIN (>=60); GFR NON AFRICAN AMERICAN 57 ML/MIN (>=60); GLUCOSE, SERUM 119 MG/DL (60-99); SODIUM, SERUM 142 MMOL/L (135-148)
[2017-02-03 12:21] LABS: HEMATOCRIT 28.4 % (36.0-48.0)
[2017-02-04 05:35] LABS: HEMATOCRIT 26.4 % (36.0-48.0); HEMOGLOBIN 8.4 g/dL (12.0-16.0); MEAN CORPUS HGB CONC 31.8 g/dL (32.0-36.0); MEAN CORPUSCULAR HEMOGLOB 30.8 pg (26.0-34.0); MEAN CORPUSCULAR VOLUME 96.7 fL (80-100); MEAN PLATELET VOLUME 10.1 fL (9.2-13.0); PLATELET COUNT 133 10/3/uL (150-400); RBC DISTRIBUTION WIDTH 14.6 % (12.0-16.0); RED CELL COUNT 2.73 10/6/uL (4.0-5.6); WHITE BLOOD CELLS 4.5 10/3/uL (4.5-10.5)
[2017-02-04 05:39] LABS: BUN (BLOOD UREA NITROGEN) 10 MG/DL (6-23); CALCIUM, SERUM 8.8 MG/DL (8.5-10.4); CHLORIDE, SERUM 106 MMOL/L (96-112); CO2 (CARBON DIOXIDE) 29 MMOL/L (24-34); GFR AFRICAN AMERICAN 63 ML/MIN (>=60); GFR NON AFRICAN AMERICAN 54 ML/MIN (>=60); GLUCOSE, SERUM 120 MG/DL (60-99); MANUAL DIFF YES %; POTASSIUM, SERUM 3.8 MMOL/L (3.5-5.3); SODIUM, SERUM 142 MMOL/L (135-148)
[2017-02-04 07:23] LABS: BAND NEUTROPHILS 2 %; BASOPHILS 1 %; BASOPHILS ABSOLUTE (CALC) 0.05 10/3/uL (0.0-0.16); EOSINOPHILS 5 %; EOSINOPHILS ABSOLUTE (CALC) 0.23 10/3/uL (0.0-0.53); LYMPHOCYTES 17 %; LYMPHOCYTES ABSOLUTE (CALC) 0.77 10/3/uL (0.67-4.30); MONOCYTES 10 %; MONOCYTES ABSOLUTE (CALC) 0.45 10/3/uL (0.21-1.20); NEUTROPHILS ABSOLUTE (CALC) 3.02 10/3/uL (2.02-8.40); SEGMENTED NEUTROPHIL (0) 65 %; TOTAL NUCLEATED CELLS 100
[2017-02-04 07:24] LABS: PLATELET ESTIMATE SLT DEC (ADEQUATE); RBC MORPHOLOGY NORM (NORMAL)
[2017-02-04] MEDS ORDERED: ELIQUIS 5 MG TAB5 MG PO (10:33)
[2017-03-15] MEDS ORDERED: L40 PO (16:25)
== END 2017-02-04 12:27 | disposition home or self-care (01) | DRG 378 ==
LOC: ER 17:48 → 6NO 18:39
PROVIDERS: Emergency Medicine; Hospitalist; Internal Medicine; Internal Medicine Gastroenterology; Nurse Practitioner Family
PROC: 0DB68ZX Excision of Stomach, Via Natural or Artificial Opening Endoscopic, Diagnostic (ICD-10-PCS; 2017-01-31)
PROC: 0DB78ZX Excision of Stomach, Pylorus, Via Natural or Artificial Opening Endoscopic, Diagnostic (ICD-10-PCS; 2017-01-31)
PROC: 0D5K8ZZ Destruction of Ascending Colon, Via Natural or Artificial Opening Endoscopic (ICD-10-PCS; principal; 2017-01-31 10:38)
PROC: 0DBM8ZX Excision of Descending Colon, Via Natural or Artificial Opening Endoscopic, Diagnostic (ICD-10-PCS; 2017-01-31 10:38)
PROC: 0DBN8ZX Excision of Sigmoid Colon, Via Natural or Artificial Opening Endoscopic, Diagnostic (ICD-10-PCS; 2017-01-31 10:38)
DX: K55.21 Angiodysplasia of colon with hemorrhage (principal); D62 Acute posthemorrhagic anemia; E11.40 Type 2 diabetes mellitus with diabetic neuropathy, unspecified; D68.32 Hemorrhagic disorder due to extrinsic circulating anticoagulants; I27.81 Cor pulmonale (chronic); E66.2 Morbid (severe) obesity with alveolar hypoventilation; Z68.42 Body mass index [BMI] 45.0-49.9, adult; I10 Essential (primary) hypertension; I35.0 Nonrheumatic aortic (valve) stenosis; I48.0 Paroxysmal atrial fibrillation; H40.9 Unspecified glaucoma; K64.1 Second degree hemorrhoids; K57.30 Diverticulosis of large intestine without perforation or abscess without bleeding; K31.9 Disease of stomach and duodenum, unspecified; K31.7 Polyp of stomach and duodenum; D12.5 Benign neoplasm of sigmoid colon; D12.4 Benign neoplasm of descending colon; T45.515A Adverse effect of anticoagulants, initial encounter; Z79.01 Long term (current) use of anticoagulants; Z86.73 Personal history of transient ischemic attack (TIA), and cerebral infarction without residual deficits; Z87.891 Personal history of nicotine dependence; Z86.010 Personal history of colon polyps; Z90.710 Acquired absence of both cervix and uterus; Z95.0 Presence of cardiac pacemaker; Z96.651 Presence of right artificial knee joint
CPT/HCPCS: 36415; 80048; 80053; 81001; 82728; 82962; 83735; 84443; 85014; 85018; 85025; 85610; 85730; 86850; 86900; 86901; 86920; 88305; 99285; A9270-GY; C9113; J2916

== ENCOUNTER 2017-03-18 10:23 | Day surgery (SDC) | payer MEDICARE, BC ==
--- NOTE | ~2017-03-18 | EGD ---
EGD REPORT [facility] [address] [address] NAME: PEGGY CALDERON : [birth year] [place] [facility] [place] [id number] AGE: 76 ADM/REG DATE : 03/18/17 MR#: [id number] REPORT SERV DATE: 03/18/17 DICTATED BY: AURELIO PADILLA DATE: 03/18/17 REPORT STATUS : Draft [facility] DATE: 03/18/17 Endoscopy Center Patient Name: Peggy Calderon Date of : 1940 Attending MD: AURELIO PADILLA, Procedure Date No Time: 03/18/2017 Procedure: Upper EUS Indications: Gastric deformity on endoscopy/Subepithelial tumor versus extrinsic compression Referring MD: SYLVIA ZARATE MD, BABATUNDE RICHARDS MD Medicines: Monitored Anesthesia Care Complications: No immediate complications. Estimated blood loss: None. Procedure: Pre-Anesthesia Assessment: - ASA Grade Assessment: III - A patient with severe systemic disease. After obtaining informed consent, the endoscope was passed under direct vision. Throughout the procedure, the patient's blood pressure, pulse, and oxygen saturations were monitored continuously. The GIF [id number] was introduced through the mouth, and advanced to the second part of duodenum. The Endoscope was introduced through the mouth, and advanced to the second part of duodenum. Findings: Endoscopic Finding : The examined esophagus was endoscopically normal. Two small papules (nodules) with no bleeding and no stigmata of recent bleeding were found in the gastric body. The exam of the stomach was otherwise normal. The examined duodenum was endoscopically normal. Endosonographic Finding : An oval intramural (subepithelial) lesion was found in the body of the stomach. The lesion was hypoechoic. Sonographically, the lesion appeared to originate from the muscularis propria (Layer 4). The lesion measured 11 mm (in maximum thickness). The outer endosonographic borders were well defined. A round intramural (subepithelial) lesion was found in the body of the stomach. The lesion was hypoechoic. Sonographically, the lesion appeared to originate from the muscularis propria (Layer 4). The lesion measured 8 mm (in maximum thickness). The outer endosonographic borders were well defined. No lymphadenopathy seen. There was no sign of significant endosonographic abnormality in the entire pancreas. The pancreas was well visualized, no pathologic EGD REPORT [address] [address] NAME: PEGGY CALDERON : [birth year] STATUS : REG [facility]#: [id number] AGE: 76 ADM/REG DATE : 03/18/17 MR#: [id number] REPORT SERV DATE: 03/18/17 DICTATED BY: AURELIO PADILLA DATE: 03/18/17 REPORT STATUS : Draft TRANSCRIBED BY: [facility] DATE: 03/18/17 lymphadenopathy, no masses, no calcifications, the pancreatic duct was well visualized from ampulla to tail, the pancreatic duct was regular in contour. There was no sign of significant endosonographic abnormality in the common bile duct. Impression: - Normal esophagus. - Two small papules (nodules) with no bleeding and no stigmata of recent bleeding were found in the stomach. - Normal examined duodenum. - An intramural (subepithelial) lesion was found in the body of the stomach. The lesion appeared to originate from within the muscularis propria (Layer 4). The diagnosis is a stromal cell (smooth muscle) neoplasm. - An intramural (subepithelial) lesion was found in the body of the stomach. The lesion appeared to originate from within the muscularis propria (Layer 4). The diagnosis is a stromal cell (smooth muscle) neoplasm. - There was no sign of significant pathology in the entire pancreas. - There was no sign of significant pathology in the common bile duct. Recommendation: - Return to previous diet. - Continue present medications. - Repeat the upper endoscopic ultrasound in 1 year for surveillance. Procedure Code(s): --- Professional --- 17268, Esophagogastroduodenoscopy, flexible, transoral; with endoscopic ultrasound examination, including the esophagus, stomach, and either the duodenum or a surgically altered stomach where the jejunum is examined distal to the anastomosis Diagnosis Code(s): --- Professional --- K31.9, Disease of stomach and duodenum, unspecified D49.0, Neoplasm of unspecified behavior of digestive system CPT copyright 2013 [employer]. All rights reserved. The codes documented in this report are preliminary and upon manager forms review may be revised to meet current compliance requirements. EGD REPORT [address] [address] NAME: PEGGY CALDERON : [birth year] [place] [facility] [place]#: [id number] AGE: 76 ADM/REG DATE : 03/18/17 MR#: [id number] REPORT SERV DATE: 03/18/17 DICTATED BY: AURELIO PADILLA DATE: 03/18/17 REPORT STATUS : Draft TRANSCRIBED BY: [facility] DATE: 03/18/17 AURELIO PADILLA 03/18/2017 1:05 PM Number of Addenda: 0 Note Initiated On: 03/18/2017 12:15 PM Scope Withdrawal Time 0 hours 0 minutes 0 seconds
[~2017-03-18 10:23] MED LIST changes: +CALCITRENE60 GM TOP; +ELIQUIS 5 MG TAB5 MG PO; +MIRALAX POWDER1 PKT PO; +OCEAN NAS; +PACERONE200 MG PO; +SYN1 PO
[2017-03-18 11:00] LABS: BUN (BLOOD UREA NITROGEN) 19 MG/DL (6-23); CALCIUM, SERUM 9.4 MG/DL (8.5-10.4); CHLORIDE, SERUM 102 MMOL/L (96-112); CO2 (CARBON DIOXIDE) 31 MMOL/L (24-34); CREATININE 0.98 MG/DL (0.55-1.02); GFR AFRICAN AMERICAN 64 ML/MIN (>=60); GFR NON AFRICAN AMERICAN 56 ML/MIN (>=60); GLUCOSE, SERUM 153 MG/DL (60-99); POTASSIUM, SERUM 4.3 MMOL/L (3.5-5.3); SODIUM, SERUM 139 MMOL/L (135-148)
== END 2017-03-18 23:59 | disposition home or self-care (01) ==
LOC: DMU 10:23
PROVIDERS: Anesthesiology; Internal Medicine Gastroenterology
PROC: 0DJ08ZZ Inspection of Upper Intestinal Tract, Via Natural or Artificial Opening Endoscopic (ICD-10-PCS; principal; 2017-03-18 12:00)
DX: K31.9 Disease of stomach and duodenum, unspecified (principal); D49.0 Neoplasm of unspecified behavior of digestive system; I10 Essential (primary) hypertension; I48.91 Unspecified atrial fibrillation; G47.33 Obstructive sleep apnea (adult) (pediatric); D64.9 Anemia, unspecified; E11.9 Type 2 diabetes mellitus without complications; L40.9 Psoriasis, unspecified; R32 Unspecified urinary incontinence; K64.9 Unspecified hemorrhoids; M10.9 Gout, unspecified; M19.90 Unspecified osteoarthritis, unspecified site; H40.9 Unspecified glaucoma; I49.9 Cardiac arrhythmia, unspecified; Z88.8 Allergy status to other drugs, medicaments and biological substances; Z88.1 Allergy status to other antibiotic agents; Z95.0 Presence of cardiac pacemaker; Z90.710 Acquired absence of both cervix and uterus; Z85.42 Personal history of malignant neoplasm of other parts of uterus; Z96.651 Presence of right artificial knee joint; Z90.49 Acquired absence of other specified parts of digestive tract; Z98.42 Cataract extraction status, left eye; Z98.41 Cataract extraction status, right eye; Z96.1 Presence of intraocular lens; Z79.891 Long term (current) use of opiate analgesic; Z79.899 Other long term (current) drug therapy
CPT/HCPCS: 80048